=== PATIENT | male | born 1995 | race Hispanic/Latino ===

== ENCOUNTER 2020-05-06 16:31 | Emergency (ER) | payer SELFPAY ==
[2020-05-06] MEDS ORDERED: AZITHROMYCIN 250 MG TAB ONE (18:04)
--- NOTE | 2020-05-06 18:37 | EDPHYS ---
Physician Documentation [facility] Name: Israel Mathias Jr Age: 25 yrs Sex: Male : 1995 Arrival Date: 05/06/2020 Time: 16:33 Bed 25 Private MD: ED Physician Jayce Potter HPI: 05/06 18:09 This 25 yrs old Male presents to ER via Ambulatory with complaints of Sore snw Throat, Congestion. 18:09 The patient presents with sore throat. The patient describes throat pain as raw, snw scratchy. Onset: The symptoms/episode began/occurred suddenly. Severity of symptoms: At their worst the symptoms were moderate, in the emergency department the symptoms are unchanged. Modifying factors: The patient has had contact with sick mother, + CoVid 19. Associated signs and symptoms: Pertinent positives: flu-like symptoms. The patient has not experienced similar symptoms in the past. It is unknown whether or not the patient has recently seen a physician. Historical: - Allergies: 16:38 No Known Allergies; sv - PSHx: 16:38 left foot surgery; sv - Immunization history:: Adult Immunizations up to date. - Social history:: Smoking status: . ROS: 18:10 Constitutional: Negative for fever, chills, and weight loss, Eyes: Negative for injury, snw pain, redness, and discharge, Neck: Negative for injury, pain, and swelling, Cardiovascular: Negative for chest pain, palpitations, and edema, Respiratory: Negative for shortness of breath, cough, wheezing, and pleuritic chest pain, Abdomen/GI: Negative for abdominal pain, nausea, vomiting, diarrhea, and constipation, Back: Negative for injury and pain, : Negative for injury, bleeding, discharge, and swelling, MS/Extremity: Negative for injury and deformity, Skin: Negative for injury, rash, and discoloration, Neuro: Negative for headache, weakness, numbness, tingling, and seizure, Psych: Negative for depression, anxiety, suicide ideation, homicidal ideation, and hallucinations. 18:10 ENT: Positive for sore throat. Exam: 18:07 Constitutional: This is a well developed, well nourished patient who is awake, alert, snw and in no acute distress. Head/Face: Normocephalic, atraumatic. Eyes: Pupils equal round and reactive to light, extra-ocular motions intact. Lids and lashes normal. Conjunctiva and sclera are non-icteric and not injected. Cornea within normal limits. Periorbital areas with no swelling, redness, or edema. 18:07 Neck: Trachea midline, no thyromegaly or masses palpated, and no cervical lymphadenopathy. Supple, full range of motion without nuchal rigidity, or vertebral point tenderness. No Meningismus. Chest/axilla: Normal chest wall appearance and motion. Nontender with no deformity. No lesions are appreciated. 18:07 Abdomen/GI: Soft, non-tender, with normal bowel sounds. No distension or tympany. No guarding or rebound. No evidence of tenderness throughout. Back: No spinal tenderness. No costovertebral tenderness. Full range of motion. Skin: Warm, dry with normal turgor. Normal color with no rashes, no lesions, and no evidence of cellulitis. MS/ Extremity: Pulses equal, no cyanosis. Neurovascular intact. Full, normal range of motion. Neuro: Awake and alert, GCS 15, oriented to person, place, time, and situation. Cranial nerves II-XII grossly intact. Motor strength 5/5 in all extremities. Sensory grossly intact. Cerebellar exam normal. Normal gait. Psych: Awake, alert, with orientation to person, place and time. Behavior, mood, and affect are within normal limits. 18:07 ENT: TM's: are normal, Nose: is normal, Mouth: is normal, Posterior pharynx: erythema, that is mild, Dental exam: normal, Voice: is normal. 18:07 Cardiovascular: Rate: tachycardic, Rhythm: regular, Pulses: no pulse deficits are appreciated, Heart sounds: normal. 18:07 Respiratory: the patient does not display signs of respiratory distress, Respirations: no acute changes, Breath sounds: bronchial sounds. Vital Signs: 16:38 BP 120 / 80; Pulse 118; Resp 20; Temp 98.9; Pulse Ox 100% ; Height 5 ft. 7 in. (170.18 sv cm); MDM: 16:48 Patient medically screened. snw 18:35 Data reviewed: vital signs, nurses notes. Data interpreted: Pulse oximetry: on room air snw is 100 %. Interpretation: normal. Counseling: I had a detailed discussion with the patient and/or guardian regarding: the historical points, exam findings, and any diagnostic results supporting the discharge/admit diagnosis, lab results, radiology results, the need for outpatient follow up, to return to the emergency department if symptoms worsen or persist or if there are any questions or concerns that arise at home. Special discussion: I have referred the patient to see his PCP for further evaluation of high blood pressure. Based on the history and exam findings, there is no indication for further emergent testing or inpatient evaluation. I discussed with the patient/guardian the need to see the primary care provider for further evaluation of the symptoms. 05/06 16:44 Order name: Flu; Complete Time: 17:57 snw 05/06 16:44 Order name: Strep; Complete Time: 17:57 snw 05/06 16:44 Order name: COVID-19; Complete Time: 19:06 snw 05/06 17:39 Order name: Chest Single View XRAY; Complete Time: 18:42 snw 05/06 17:51 Order name: Throat Culture EDMS Administered Medications: 18:00 Drug: Zithromax 500 mg Route: PO; ls4 18:30 Follow up: Response: No adverse reaction ls4 18:08 Drug: Zinc Sulfate 220 mg Route: PO; ls4 18:30 Follow up: Response: No adverse reaction ls4 Disposition: 05/06/20 18:37 Discharged to Home. Impression: SARS-associated coronavirus as the cause of diseases classified elsewhere. - Condition is Stable. - Discharge Instructions: Severe Acute Respiratory Syndrome (SARS). - Prescriptions for Zinc (with A and C) Lozenges - take 1 lozenge by ORAL route once daily; 30 lozenge. Zithromax 500 mg Oral Tablet - take 1 tablet by ORAL route once daily for 5 days; 5 tablet. - Work release form, Medication Reconciliation Form, Thank You Letter, Antibiotic Education, Prescription Opioid Use form. - Follow up: Emergency Department; When: As needed; Reason: Worsening of condition. Follow up: Private Physician; When: 2 - 3 days; Reason: Recheck today's complaints, Continuance of care, Re-evaluation by your physician. Addendum: 05/10/2020 07:11 Co-signature as Attending Physician, Jayce Potter MD. r n Signatures: Dispatcher [facility] Lynn Hodgson RN RN sv Waters, Shelly, FNP-C MACHINE TAILER-Csnw Jayce Potter MD MD rn Westbrook, MyrtleLucia mw2 Marianela Tomas RN RN ls4 Corrections: (The following items were deleted from the chart) 05/06 19:26 18:37 05/06/2020 18:37 Discharged to Home. Impression: SARS-associated coronavirus as mw2 the cause of diseases classified elsewhere. Condition is Stable. Forms are Medication Reconciliation Form, Thank You Letter, Antibiotic Education, Prescription Opioid Use. Follow up: Emergency Department; When: As needed; Reason: Worsening of condition. Follow up: Private Physician; When: 2 - 3 days; Reason: Recheck today's complaints, Continuance of care, Re-evaluation by your physician. snw
--- NOTE | 2020-05-06 18:37 | ER ---
Nurse's Notes [facility] Name: Israel Mathias Jr Age: 25 yrs Sex: Male : 1995 Arrival Date: 05/06/2020 Time: 16:33 Bed 25 Private MD: Diagnosis: SARS-associated coronavirus as the cause of diseases classified elsewhere Presentation: 05/06 16:37 Chief complaint: Patient states: sore throat, runny nose, headache, fatigue x 1 day. Pt sv was around his mother who was COVID +. Coronavirus screen: Client denies travel out of the [place] in the last 14 days. fatigue, headache, runny nose, sore throat, Client presents with at least one sign or symptom that may indicate coronavirus-19. Standard/surgical mask placed on the client. Provider contacted for isolation considerations. Ebola Screen: No symptoms or risks identified at this time. Risk Assessment: Do you want to hurt yourself or someone else? Patient reports no desire to harm self or others. Onset of symptoms was May 05, 2020. 16:37 Method Of Arrival: Ambulatory sv 16:37 Acuity: ROD 3 sv 16:38 Initial Sepsis Screen: Does the patient meet any 2 criteria? HR > 90 bpm. No. Patient's sv initial sepsis screen is negative. Does the patient have a suspected source of infection? No. Patient's initial sepsis screen is negative. Historical: - Allergies: 16:38 No Known Allergies; sv - PSHx: 16:38 left foot surgery; sv - Immunization history:: Adult Immunizations up to date. - Social history:: Smoking status: . Vital Signs: 16:38 BP 120 / 80; Pulse 118; Resp 20; Temp 98.9; Pulse Ox 100% ; Height 5 ft. 7 in. (170.18 sv cm); ED Course: 16:33 Patient arrived in ED. as 16:37 Arm band placed on. sv 16:38 Triage completed. sv 16:43 Shelley Medina FNP-C is PHCP. snw 16:43 Jayce Potter MD is Attending Physician. snw 16:51 Marianela Tomas RN is Primary Nurse. ls4 18:25 Chest Single View XRAY In Process Unspecified. EDMS Administered Medications: 18:00 Drug: Zithromax 500 mg Route: PO; ls4 18:30 Follow up: Response: No adverse reaction ls4 18:08 Drug: Zinc Sulfate 220 mg Route: PO; ls4 18:30 Follow up: Response: No adverse reaction ls4 Outcome: 18:37 Discharge ordered by MD. palafox 19:26 Patient left the ED. mw2 Addendum: 05/10/2020 10:48 Addendum: COVID-19 Result: Negative result given to RN to notify pt. Attempted to i w contact pt regarding negative COVID-19 swab results. Left voice mail. Signatures: Dispatcher [employer] EDLynn London RN RN sv Waters, Shelly, ODD JOB LABORER-C ODD JOB LABORER-CsnSwapna Lam Irene RN Nessa Davis mw2 Marianela Tomas RN RN ls4 Corrections: (The following items were deleted from the chart) 05/06 16:44 16:37 Acuity: ROD 4 sv
--- NOTE | 2020-05-06 18:38 | RAD REPORT ---
EXAM DESCRIPTION: RAD - Chest Single View - 05/06/2020 6:25 pm CLINICAL HISTORY: COUGH Chest pain. COMPARISON: Chest Single View dated 08/03/2016; ABDOMEN 1 VIEW KUB dated 09/08/2008 FINDINGS: Portable technique limits examination quality. The lungs are grossly clear. The heart is normal in size. No displaced fractures. IMPRESSION: No acute intrathoracic process suspected.
[2020-05-06] MEDS ORDERED: ZINC SULFATE 220 MG CAP PO NR (19:00)
== END 2020-05-06 19:26 | disposition home or self-care (01) ==
LOC: ER 16:31
DX: R07.0 Pain in throat (principal); Z20.828 Contact with and (suspected) exposure to other viral communicable diseases
CPT/HCPCS: 71045; 87070; 87081; 87804; 99283; U0002

== ENCOUNTER 2022-04-19 09:51 | Emergency (ER) | payer SELFPAY ==
--- OUTSIDE RECORDS SUMMARY | 2022-04-19 09:54 | XMS REPORT | Continuity of Care Document ---
:1995 Author Organization [facility] t Address [address] [place] [address] [address] [place] [address] Care Team Providers Name Role Phone Unavailable Unavailable Unavailable Problems This patient has no known problems. Allergies, Adverse Reactions, Alerts Allergy Allergy Status Severity Reaction(s) Onset Inactive Treating Comm ents Source Name Type Date Date Clinician NO KNOWN Drug Active [facility] ALLERGIE Class [facility] Medications This patient has no known medications. Procedures This patient has no known procedures. Encounters Start End Encounter Admission Attending Care Care Encounter Source Date/Time Date/Time Type Type Clinicians Facility Department ID 2020-05-07 2020-05-07 Emergency X [facility] ERT [id number] [facility] 14:21:00 14:21:00 [facility] Results Test Description Test Time Test Comments Results Result Comments Source SARS-CoV-2 (COVID-19), RT-PCR/TMA 2021-09-27 09:22:51 Test Item Value Reference Range Interpretation Comme nts SARS-CoV-2 INTERPRETATION POSITIVE SEE NOTE A S ARS-CoV-2 RNA DETECTEDPositive (test code = 81583) results are indicative of the presence of IGNACIO S-CoV-2 RNA;clinical co rrelation with patient history and other diagnosticinfor mation is necessary to de termine patient infection statu s.Positive results do not rule out bacterial infection or co -infectionwith other viruses. Positive and negative predic tive values oftesting are h ighly dependent on prevalence. SOURCE (test code = 06905) NASOPHARYNGEAL Note: Methodology is [employer] Real-Time RT-PC R. The expected result or refer ence range is NEGATIVE (Not D etected). For more information reg arding COVID-19 testing to incl ude clinicalinforma tion, methodology detail, intende d use, FDA authorization a ndrecommended fact sheets for cindy ents or healthcare providers, see [facility] Announcement: S ARS-CoV-2 (COVID-19) by N ENEDINA at URL below (note,fact shee ts are provided by method given in report:https:// www.BigEvidence/cl inicians/client -communications/ Alternatively, see downloadable PDF fact sheet at:https://www. BigEvidence/COVID- 19-RT-PCR UNLES S OTHERWISE INDICATED, ALL TESTING PERFORMED ATCLINICAL [facility], [facility]. [address] [place] [address] 4 PRINTER APPRENTICE: MERVAT RUIZ M.D. CLIA NUMBER [id number] CAP ACCREDITATION N O. [id number]
[2022-04-19] MEDS ORDERED: ACETAMINOPHEN 500 MG TAB ONE (10:46)
[2022-04-19] MEDS ORDERED: ONDANSETRON 4 MG/2 ML VIAL ONE (10:46)
[2022-04-19] MEDS ORDERED: NA CHLORIDE 0.9% 1,000 ML ONE (10:46)
[2022-04-19 10:48] LABS: Absolute Lymphocytes (CBC) 0.6 K/uL (0.7-4.9); Hematocrit 46.7 % (39.6-49.0); MCV 85.4 fL (80-100); MPV 8.1 fL (7.6-11.3); RBC Red Blood Cell Count 5.46 M/uL (4.33-5.43)
[2022-04-19 11:11] LABS: Albumin 3.9 g/dL (3.4-5.0); Bilirubin Total 0.4 mg/dL (0.2-1.0); Potassium 3.8 mmol/L (3.5-5.1); Protein, Total 8.4 g/dL (6.4-8.2)
[2022-04-19] MEDS ORDERED: dexAMETHasone 10 MG/ML VIAL ONE (12:29)
[2022-04-19] MEDS ORDERED: CEFTRIAXONE 1000 MG/VIAL ONE (12:29)
[2022-04-19] MEDS ORDERED: NA CHLORIDE 0.9% 50 ML ONE (12:29)
--- NOTE | 2022-04-19 13:41 | ER ---
Nurse's Notes [facility] Name: Israel Mathias Jr Age: 26 yrs Sex: Male : 1995 Arrival Date: 04/19/2022 Time: 09:53 Bed 16 Private MD: Diagnosis: Infectious mononucleosis, unspecified with other complication;Acute tonsillitis due to other specified organisms Presentation: 04/19 10:12 Chief complaint: Patient states: coughing, chills, vomiting an sore throat, started iw yesterday. Coronavirus screen: Client presents with at least one sign or symptom that may indicate coronavirus-19. Ebola Screen: Patient negative for fever greater than or equal to 101.5 degrees Fahrenheit, and additional compatible Ebola Virus Disease symptoms Patient denies exposure to infectious person. Patient denies travel to an Ebola-affected area in the 21 days before illness onset. No symptoms or risks identified at this time. Initial Sepsis Screen: Does the patient meet any 2 criteria? No. Patient's initial sepsis screen is negative. Does the patient have a suspected source of infection? No. Patient's initial sepsis screen is negative. Risk Assessment: Do you want to hurt yourself or someone else? Patient reports no desire to harm self or others. Onset of symptoms was April 18, 2022. 10:12 Method Of Arrival: Ambulatory iw 10:12 Acuity: ROD 3 iw Triage Assessment: 13:15 Headache History: Denies prior headaches. General: Appears. General: Behavior is calm, jg9 cooperative. Pain: Complains of pain in uvula, left aspect of posterior pharynx and right aspect of posterior pharynx Pain currently is 2 out of 10 on a pain scale. Pain began 2-3 days ago. Also complains of fever. Historical: - Allergies: 10:14 No Known Allergies; iw - Home Meds: 10:14 None [Active]; iw - PMHx: 10:14 None; iw - PSHx: 10:14 head injury; iw - Immunization history:: Client reports receiving the 2nd dose of the Covid vaccine. - Social history:: Smoking status: Patient denies any tobacco usage or history of. Screenin:15 Abuse screen: Denies threats or abuse. Denies injuries from another. Nutritional jg9 screening: No deficits noted. Tuberculosis screening: No symptoms or risk factors identified. Fall Risk None identified. Assessment: 11:00 Reassessment: No changes from previously documented assessment. Patient and/or family jg9 updated on plan of care and expected duration. Pain level reassessed. Patient is alert, oriented x 3, equal unlabored respirations, skin warm/dry/pink. 12:00 Reassessment: Patient is alert, oriented x 3, equal unlabored respirations, skin jg9 warm/dry/pink. Patient states feeling better. Patient states symptoms have improved. 12:00 Reassessment: No changes from previously documented assessment. Patient and/or family jg9 updated on plan of care and expected duration. Pain level reassessed. Patient is alert, oriented x 3, equal unlabored respirations, skin warm/dry/pink. Pain: Denies pain. Neuro: No deficits noted. 13:00 Reassessment: No changes from previously documented assessment. Patient and/or family jg9 updated on plan of care and expected duration. Pain level reassessed. Patient is alert, oriented x 3, equal unlabored respirations, skin warm/dry/pink. Vital Signs: 10:12 BP 111 / 72; Pulse 123; Resp 16; Temp 97.9; Pulse Ox 98% ; Weight 131.54 kg; Height 5 iw ft. 6 in. (167.64 cm); 13:00 BP 117 / 74; Pulse 108; Resp 17 S; Pulse Ox 95% on R/A; jg9 13:30 BP 112 / 69; Pulse 99; Resp 12 S; Pulse Ox 96% on R/A; jg9 10:12 Body Mass Index 46.81 (131.54 kg, 167.64 cm) iw ED Course: 09:53 Patient arrived in ED. rg4 09:54 Sigifredo Quintero PA is PHCP. cp 09:54 Marco Dewitt MD is Attending Physician. cp 10:14 Triage completed. iw 10:14 Arm band placed on. iw 10:36 Makayla Maher, HA is Primary Nurse. jg9 10:40 Inserted saline lock: 22 gauge in left antecubital area, using aseptic technique. Blood jg9 collected. 13:17 Patient has correct armband on for positive identification. Bed in low position. Call jg9 light in reach. Side rails up X 1. 13:50 No provider procedures requiring assistance completed. jg9 13:51 IV discontinued. jg9 Administered Medications: 10:50 Drug: Tylenol 1000 mg Route: PO; jg9 12:32 Follow up: Response: No adverse reaction jg9 10:50 Drug: NS 0.9% 1000 ml Route: IV; Rate: 1 bolus; Site: left antecubital; jg9 12:32 Follow up: IV Status: Completed infusion; IV Intake: 1000ml jg9 10:55 Drug: Zofran (Ondansetron) 4 mg Route: IVP; Site: left antecubital; jg9 12:33 Follow up: Response: No adverse reaction; Nausea is decreased jg9 12:30 Drug: Rocephin (cefTRIAXone) 1 grams Route: IV; Rate: calculated rate; Site: left [facility] antecubital; 13:09 Follow up: Response: No adverse reaction jg9 13:51 Follow up: IV Status: Completed infusion; IV Intake: 50ml jg9 12:31 Drug: Decadron - Dexamethasone 10 mg Route: IVP; Site: left antecubital; jg9 13:09 Follow up: Response: No adverse reaction jg9 Medication: 13:51 VIS not applicable for this client. jg9 Intake: 12:32 IV: 1000ml; Total: 1000ml. jg9 13:51 IV: 50ml; Total: 1050ml. jg9 Outcome: 13:40 Discharge ordered by . dominique 13:50 Discharged to home ambulatory. jg9 13:50 Condition: stable 13:50 Discharge instructions given to patient, Instructed on discharge instructions, follow up and referral plans. Demonstrated understanding of instructions, follow-up care, Prescriptions given X 2. 13:52 Patient left the ED. jg9 Signatures: Chantal Kaplan, RN RN Sigifredo Gallardo PA PA cp Garcia, Rubi rg4 Makayla Maher RN RN jg9
--- NOTE | 2022-04-19 13:41 | EDPHYS ---
Physician Documentation [facility] Name: Israel Mathias Jr Age: 26 yrs Sex: Male : 1995 Arrival Date: 04/19/2022 Time: 09:53 Bed 16 Private MD: ED Physician Marco Dewitt HPI: 04/19 10:35 This 26 yrs old Male presents to ER via Ambulatory with complaints of cp Headache, Sore Throat. 10:35 The patient complains of pain to the top of head and forehead. The patient describes cp the headache as aching. Onset: The symptoms/episode began/occurred yesterday. Associated signs and symptoms: Pertinent positives: vomiting, sore throat, Pertinent negatives: altered mental status, fever, neck stiffness, sinus congestion, sinus tenderness, weakness. Severity of symptoms: in the emergency department the pain is unchanged, despite home interventions. Historical: - Allergies: 10:14 No Known Allergies; iw - Home Meds: 10:14 None [Active]; iw - PMHx: 10:14 None; iw - PSHx: 10:14 head injury; iw - Immunization history:: Client reports receiving the 2nd dose of the Covid vaccine. - Social history:: Smoking status: Patient denies any tobacco usage or history of. ROS: 10:40 Constitutional: Negative for body aches, chills, fever, poor PO intake. cp 10:40 Eyes: Negative for injury, pain, redness, and discharge. cp 10:40 ENT: Positive for sore throat, Negative for drainage from ear(s), ear pain, difficulty swallowing, difficulty handling secretions. 10:40 Cardiovascular: Negative for chest pain. 10:40 Respiratory: Negative for cough, shortness of breath, wheezing. 10:40 Abdomen/GI: Positive for vomiting, Negative for abdominal pain, diarrhea, constipation. 10:40 Skin: Negative for cellulitis, rash. 10:40 Neuro: Positive for headache, Negative for altered mental status, weakness. 10:40 All other systems are negative. Exam: 10:45 Constitutional: The patient appears in no acute distress, alert, awake, non-toxic, well cp developed, well nourished. 10:45 Head/Face: Normocephalic, atraumatic. cp 10:45 Eyes: Periorbital structures: appear normal, Pupils: equal, round, and reactive to light and accomodation, Extraocular movements: intact throughout, Conjunctiva: normal, no exudate, no injection, Sclera: no appreciated abnormality, Lids and lashes: appear normal, bilaterally. 10:45 ENT: External ear(s): are unremarkable, Ear canal(s): are normal, clear, TM's: dullness, bilaterally, Nose: is normal, Mouth: Lips: moist, Oral mucosa: moist, Posterior pharynx: Tonsils: bilaterally enlarged, with erythema, no exudate, Uvula: midline, erythema, that is marked, exudate, is not appreciated. 10:45 Neck: ROM/movement: is normal, is supple, without pain, no range of motions limitations, no meningismus, no nuchal rigidity. 10:45 Chest/axilla: Inspection: normal. 10:45 Cardiovascular: Rate: tachycardic, Rhythm: regular. 10:45 Respiratory: the patient does not display signs of respiratory distress, Respirations: normal, no use of accessory muscles, no retractions, labored breathing, is not present, Breath sounds: are clear throughout, no decreased breath sounds, no stridor, no wheezing. 10:45 Abdomen/GI: Inspection: abdomen appears normal, Palpation: abdomen is soft and non-tender, in all quadrants. 10:45 Back: pain, is absent, ROM is normal. 10:45 Skin: no rash present. 10:45 Neuro: Orientation: to person, place \\T\\ time. Mentation: is normal, Motor: moves all fours, strength is normal, Sensation: is normal. Vital Signs: 10:12 BP 111 / 72; Pulse 123; Resp 16; Temp 97.9; Pulse Ox 98% ; Weight 131.54 kg; Height 5 iw ft. 6 in. (167.64 cm); 13:00 BP 117 / 74; Pulse 108; Resp 17 S; Pulse Ox 95% on R/A; jg9 13:30 BP 112 / 69; Pulse 99; Resp 12 S; Pulse Ox 96% on R/A; jg9 10:12 Body Mass Index 46.81 (131.54 kg, 167.64 cm) iw MDM: 10:35 Patient medically screened. cp 13:40 Data reviewed: vital signs, nurses notes, lab test result(s). cp 13:40 Differential diagnosis: meningitis, migraine, sinusitis, tension headache. Counseling: cp I had a detailed discussion with the patient and/or guardian regarding: the historical points, exam findings, and any diagnostic results supporting the discharge/admit diagnosis, lab results, to return to the emergency department if symptoms worsen or persist or if there are any questions or concerns that arise at home. Response to treatment: the patient's symptoms have markedly improved after treatment, and as a result, I will discharge patient. 04/19 10:18 Order name: SARS-COV-2 RT PCR (Document "Date of Onset" if Symptomatic); Complete Time: iw 12:04/19 12:27 Interpretation: Reviewed. 04/19 10:18 Order name: Flu; Complete Time: 11:56 iw 04/19 10:18 Order name: Strep; Complete Time: 11:56 iw 04/19 10:27 Order name: CBC with Diff; Complete Time: 11:22 cp 04/19 11:22 Interpretation: Normal except: WBC 14.3; RBC 5.46; LUIS% 88.5; LYM% 4.0; NEUT A 12.7; cp LYMA 0.6. 04/19 10:27 Order name: CMP; Complete Time: 11:22 cp 04/19 11:22 Interpretation: Normal except: GLUC 121; AST 13; TP 8.4; GLOB 4.5; A/G 0.9. cp 04/19 10:27 Order name: Lipase; Complete Time: 11:22 cp 04/19 10:27 Order name: IV Saline Lock; Complete Time: 10:33 cp 04/19 10:27 Order name: [place] Screen Profile; Complete Time: 11:56 cp 04/19 11:56 Interpretation: Reviewed. 04/19 11:54 Order name: Throat Culture EDMS 04/19 10:27 Order name: Labs collected and sent; Complete Time: 10:33 cp 04/19 12:59 Order name: PO challenge; Complete Time: 13:13 cp Administered Medications: 10:50 Drug: Tylenol 1000 mg Route: PO; jg9 12:32 Follow up: Response: No adverse reaction j9 10:50 Drug: NS 0.9% 1000 ml Route: IV; Rate: 1 bolus; Site: left antecubital; jg9 12:32 Follow up: IV Status: Completed infusion; IV Intake: 1000ml jg9 10:55 Drug: Zofran (Ondansetron) 4 mg Route: IVP; Site: left antecubital; jg9 12:33 Follow up: Response: No adverse reaction; Nausea is decreased jg9 12:30 Drug: Rocephin (cefTRIAXone) 1 grams Route: IV; Rate: calculated rate; Site: left j9 antecubital; 13:09 Follow up: Response: No adverse reaction jg9 13:51 Follow up: IV Status: Completed infusion; IV Intake: 50ml jg9 12:31 Drug: Decadron - Dexamethasone 10 mg Route: IVP; Site: left antecubital; jg9 13:09 Follow up: Response: No adverse reaction jg9 Disposition Summary: 04/19/22 13:40 Discharge Ordered Location: Home cp Problem: new cp Symptoms: have improved cp Condition: Stable cp Diagnosis - Infectious mononucleosis, unspecified with other complication cp - Acute tonsillitis due to other specified organisms cp Followup: cp - With: Private Physician - When: 1 - 2 days - Reason: Worsening of condition Discharge Instructions: - Discharge Summary Sheet cp - Infectious Mononucleosis cp - Tonsillitis cp - Form - Excuse from Work, School, or Physical Activity cp Forms: - Medication Reconciliation Form cp - Thank You Letter cp - Antibiotic Education cp - Prescription Opioid Use cp Prescriptions: - clarithromycin 500 mg Oral tablet - take 1 tablet by ORAL route 2 times per day for 10 days; 20 tablet; Refills: 0, cp Product Selection Permitted - Ibuprofen 800 mg Oral Tablet - take 1 tablet by ORAL route every 8 hours As needed take with food; 30 tablet; cp Refills: 0, Product Selection Permitted Signatures: Dispatcher [employer] Chantal Alarcon RN RN iw Page, Corey, PA PA cp Gilmore, Jennifer, RN RN jg9
[2022-04-19 14:46] VITALS: TEMP 97.9
[2022-04-19 14:59] VITALS: BP 112/69; O2SAT 96
== END 2022-04-19 13:52 | disposition home or self-care (01) ==
LOC: ER 09:51
DX: B27.99 Infectious mononucleosis, unspecified with other complication (principal); J03.80 Acute tonsillitis due to other specified organisms; Z20.822 Contact with and (suspected) exposure to COVID-19
CPT/HCPCS: 36415; 80053; 83690; 85025; 86308; 87070; 87081; 87804; 96361; 96365; 96375; 99284; J1100; J2405; J7030; U0003

== ENCOUNTER 2022-07-28 17:39 | Emergency (ER) | payer SELFPAY ==
--- OUTSIDE RECORDS SUMMARY | 2022-07-28 17:41 | XMS REPORT | Continuity of Care Document ---
:1995 Author Organization [facility] t Address [address] [place] [address] [address]. [address] [place] [address] Care Team Providers Name Role Phone Unavailable Unavailable Unavailable Problems This patient has no known problems. Allergies, Adverse Reactions, Alerts Allergy Allergy Status Severity Reaction(s) Onset Inactive Treating Comm ents Source Name Type Date Date Clinician NO KNOWN Drug Active [facility] ALLERGIE Class [facility] Medications This patient has no known medications. Procedures This patient has no known procedures. Encounters Start End Encounter Admission Attending Care Care Encounter Source Date/Time Date/Time Type Type Clinicians Facility Department ID 2020-05-07 2020-05-07 Emergency X [facility] ERT [id number] [facility] 14:21:00 14:21:00 [facility] Results Test Description Test Time Test Comments Results Result Comments Source SARS-CoV-2 (COVID-19), RT-PCR/TMA 2021-09-27 09:22:51 Test Item Value Reference Range Interpretation Comme nts SARS-CoV-2 INTERPRETATION POSITIVE SEE NOTE A S ARS-CoV-2 RNA DETECTEDPositive (test code = 77230) results are indicative of the presence of IGNACIO S-CoV-2 RNA;clinical co rrelation with patient history and other diagnosticinfor mation is necessary to de termine patient infection statu s.Positive results do not rule out bacterial infection or co -infectionwith other viruses. Positive and negative predic tive values oftesting are h ighly dependent on prevalence. SOURCE (test code = 67651) NASOPHARYNGEAL Note: Methodology is [employer] Real-Time RT-PC R. The expected result or refer ence range is NEGATIVE (Not D etected). For more information reg arding COVID-19 testing to incl ude clinicalinforma tion, methodology detail, intende d use, FDA authorization a ndrecommended fact sheets for cindy ents or healthcare providers, see [facility] Announcement: S ARS-CoV-2 (COVID-19) by N ENEDINA at URL below (note,fact shee ts are provided by method given in report:https:// www.[employer]/cl inicians/client -communications/ Alternatively, see downloadable PDF fact sheet at:https://www. [employer]/COVID- 19-RT-PCR UNLES S OTHERWISE INDICATED, ALL TESTING PERFORMED AT[facility], [facility]. [address] [place] [address] 4 OFFICE RENTAL CLERK: MERVAT RUIZ M.D. CLIA NUMBER [id number] CAP ACCREDITATION N O. [id number]
[2022-07-28 19:27] LABS: SARS-COV-2 RT PCR NEGATIVE (NEGATIVE)
--- NOTE | 2022-07-28 20:52 | EDPHYS ---
Physician Documentation [facility] Name: Israel Mathias Jr Age: 27 yrs Sex: Male : 1995 Arrival Date: 07/28/2022 Time: 17:41 Bed 9 Private MD: ED Physician Sigifredo Ward HPI: 07/28 20:49 This 27 yrs old Male presents to ER via Ambulatory with complaints of chills jl9 and body aches x2 days. . 20:49 Onset: The symptoms/episode began/occurred 2 day(s) ago. The symptoms do not radiate. jl9 Associated signs and symptoms: Pertinent positives: headache. Modifying factors: The symptoms are alleviated by nothing, the symptoms are aggravated by. Historical: - Allergies: 18:30 No Known Allergies; vg1 - Home Meds: 18:30 None [Active]; vg1 - PMHx: 18:30 None; vg1 - PSHx: 18:30 head injury; vg1 - Immunization history:: Client reports having NOT received the Covid vaccine. - Social history:: Smoking status: Patient denies any tobacco usage or history of. ROS: 20:50 Constitutional: Negative for fever, chills, and weight loss, Eyes: Negative for injury, jl9 pain, redness, and discharge. 20:50 ENT: Negative for injury, pain, and discharge, Neck: Negative for injury, pain, and swelling, Cardiovascular: Negative for chest pain, palpitations, and edema, Respiratory: Negative for shortness of breath, cough, wheezing, and pleuritic chest pain, Abdomen/GI: Negative for abdominal pain, nausea, vomiting, diarrhea, and constipation, Back: Negative for injury and pain, : Negative for injury, bleeding, discharge, and swelling, MS/Extremity: Negative for injury and deformity, Skin: Negative for injury, rash, and discoloration, Neuro: Negative for headache, weakness, numbness, tingling, and seizure, Psych: Negative for depression, anxiety, suicide ideation, homicidal ideation, and hallucinations, Allergy/Immunology: Negative for hives, rash, and allergies, Endocrine: Negative for neck swelling, polydipsia, polyuria, polyphagia, and marked weight changes, Hematologic/Lymphatic: Negative for swollen nodes, abnormal bleeding, and unusual bruising. 20:50 Constitutional: Positive for body aches, chills. Exam: 20:50 Constitutional: This is a well developed, well nourished patient who is awake, alert, jl9 and in no acute distress. Head/Face: Normocephalic, atraumatic. Eyes: Pupils equal round and reactive to light, extra-ocular motions intact. Lids and lashes normal. Conjunctiva and sclera are non-icteric and not injected. Cornea within normal limits. Periorbital areas with no swelling, redness, or edema. ENT: Mucous membranes moist. Neck: Trachea midline, no thyromegaly or masses palpated, and no cervical lymphadenopathy. Supple, full range of motion without nuchal rigidity, or vertebral point tenderness. No Meningismus. Chest/axilla: Normal chest wall appearance and motion. Nontender with no deformity. No lesions are appreciated. Cardiovascular: Regular rate and rhythm with a normal S1 and S2. No gallops, murmurs, or rubs. Normal PMI, no JVD. No pulse deficits. Respiratory: Lungs have equal breath sounds bilaterally, clear to auscultation and percussion. No rales, rhonchi or wheezes noted. No increased work of breathing, no retractions or nasal flaring. Abdomen/GI: Soft, non-tender, with normal bowel sounds. No distension or tympany. No guarding or rebound. No evidence of tenderness throughout. Back: No spinal tenderness. No costovertebral tenderness. Full range of motion. Skin: Warm, dry with normal turgor. Normal color with no rashes, no lesions, and no evidence of cellulitis. MS/ Extremity: Pulses equal, no cyanosis. Neurovascular intact. Full, normal range of motion. Neuro: Awake and alert, GCS 15, oriented to person, place, time, and situation. Cranial nerves II-XII grossly intact. Motor strength 5/5 in all extremities. Sensory grossly intact. Cerebellar exam normal. Normal gait. Psych: Awake, alert, with orientation to person, place and time. Behavior, mood, and affect are within normal limits. Vital Signs: 18:27 BP 111 / 72; Pulse 117; Resp 17; Temp 100; Pulse Ox 99% ; Weight 104.33 kg; Height 5 vg1 ft. 6 in. (167.64 cm); Pain 8/10; 20:57 BP 128 / 77; Pulse 101; Resp 18; Pulse Ox 99% on R/A; ld1 18:27 Body Mass Index 37.12 (104.33 kg, 167.64 cm) 1 MDM: 18:56 Patient medically screened. jl9 20:51 Data reviewed: vital signs, nurses notes. Counseling: I had a detailed discussion with jlKaty the patient and/or guardian regarding: the historical points, exam findings, and any diagnostic results supporting the discharge/admit diagnosis, lab results, the need for outpatient follow up, to return to the emergency department if symptoms worsen or persist or if there are any questions or concerns that arise at home. 07/28 18:31 Order name: COVID-19/FLU A+B; Complete Time: 20:49 [facility] 07/28 18:31 Order name: Strep; Complete Time: 18:56 [facility] 07/28 18:53 Order name: Throat Culture EDMS Administered Medications: No medications were administered Disposition Summary: 07/28/22 20:51 Discharge Ordered Location: Home jl9 Condition: Stable jl9 Diagnosis - Influenza due to identified novel influenza A virus jl9 Followup: jl9 - With: Private Physician - When: 1 - 2 days - Reason: Recheck today's complaints, Continuance of care, Re-evaluation by your physician Discharge Instructions: - Form - Return To Work wm - Discharge Summary Sheet jl9 - Influenza, Adult, [id number] jl9 Forms: - Medication Reconciliation Form jl9 - Work release form wm - Thank You Letter jl9 - Antibiotic Education jl9 - Prescription Opioid Use jl9 Prescriptions: - Tamiflu 75 mg Oral Capsule - take 1 tablet by ORAL route every 12 hours for 5 days; 10 tablet; Refills: 0, jl9 Product Selection Permitted Addendum: 07/30/2022 13:40 Co-signature as Attending Physician, Sigifredo Ward MD I agree with the assessment and c corbett plan of care. Signatures: Dispatcher [employer] Sigifredo Becerril MD MD cha Garcia, Victoria, RN RN vg1 Moris Menjivar jl9
--- NOTE | 2022-07-28 20:52 | ER ---
Nurse's Notes [facility] Name: Israel Mathias Jr Age: 27 yrs Sex: Male : 1995 Arrival Date: 07/28/2022 Time: 17:41 Bed 9 Private MD: Diagnosis: Influenza due to identified novel influenza A virus Presentation: 07/28 18:27 Chief complaint: Patient states: ABD pain, NVD, cough/congestion, chills and body aches vg1 x 2 days. Coronavirus screen: Vaccine status: Patient reports being unvaccinated. Client denies travel out of the [place] in the last 14 days. Ebola Screen: Patient negative for fever greater than or equal to 101.5 degrees Fahrenheit, and additional compatible Ebola Virus Disease symptoms. Initial Sepsis Screen: Does the patient meet any 2 criteria? HR > 90 bpm. Does the patient have a suspected source of infection? No. Patient's initial sepsis screen is negative. Risk Assessment: Do you want to hurt yourself or someone else? Patient reports no desire to harm self or others. Onset of symptoms was July 26, 2022. 18:27 Method Of Arrival: Ambulatory vg1 18:27 Acuity: ROD 3 vg1 Triage Assessment: 18:30 General: Appears uncomfortable, Behavior is cooperative. Pain: Complains of pain in vg1 epigastric area, throat Pain currently is 8 out of 10 on a pain scale. Neuro: Level of Consciousness is awake, alert, obeys commands, Oriented to person, place, time, situation. Respiratory: Reports cough that is Airway is patent Respiratory effort is even, unlabored. GI: Reports diarrhea, nausea, vomiting. Historical: - Allergies: 18:30 No Known Allergies; vg1 - Home Meds: 18:30 None [Active]; vg1 - PMHx: 18:30 None; vg1 - PSHx: 18:30 head injury; vg1 - Immunization history:: Client reports having NOT received the Covid vaccine. - Social history:: Smoking status: Patient denies any tobacco usage or history of. Screenin:57 Abuse screen: Denies threats or abuse. Denies injuries from another. Nutritional ld1 screening: No deficits noted. Tuberculosis screening: No symptoms or risk factors identified. Fall Risk None identified. Assessment: 20:57 Reassessment: See triage assessment. ld1 Vital Signs: 18:27 BP 111 / 72; Pulse 117; Resp 17; Temp 100; Pulse Ox 99% ; Weight 104.33 kg; Height 5 vg1 ft. 6 in. (167.64 cm); Pain 8/10; 20:57 BP 128 / 77; Pulse 101; Resp 18; Pulse Ox 99% on R/A; ld1 18:27 Body Mass Index 37.12 (104.33 kg, 167.64 cm) vg1 ED Course: 17:41 Patient arrived in ED. mr 18:30 Triage completed. vg1 18:30 Arm band placed on. vg1 18:56 Moris Menjivar is PHCP. jl9 18:56 Sigifredo Ward MD is Attending Physician. jl9 20:57 Kenna Rodriguez, RN is Primary Nurse. ld1 20:57 Patient has correct armband on for positive identification. Placed in gown. Bed in low ld1 position. Call light in reach. Side rails up X2. Pulse ox on. NIBP on. Door closed. Noise minimized. 20:57 No provider procedures requiring assistance completed. Patient did not have IV access ld1 during this emergency room visit. Administered Medications: No medications were administered Medication: 20:57 VIS not applicable for this client. ld1 Outcome: 20:51 Discharge ordered by . jl9 20:57 Discharged to home ambulatory. ld1 20:57 Condition: stable 20:57 Discharge instructions given to patient, Instructed on discharge instructions, follow up and referral plans. medication usage, Demonstrated understanding of instructions, follow-up care, medications, Prescriptions given X 1. 20:58 Patient left the ED. ld1 Signatures: Renetta Silva Judith Johnson, RN RN vg1 Kenna Rodriguez, RN RN ld1 Moris Menjivar jl9
[2022-07-28 22:03] VITALS: TEMP 100; O2SAT 99
[2022-07-28 22:09] VITALS: BP 128/77
== END 2022-07-28 20:58 | disposition home or self-care (01) ==
LOC: ER 17:39
DX: J10.1 Influenza due to other identified influenza virus with other respiratory manifestations (principal); Z20.822 Contact with and (suspected) exposure to COVID-19
CPT/HCPCS: 0240U; 87070; 87081; 99283

== ENCOUNTER 2023-03-28 03:31 | Emergency (ER) | payer SELFPAY ==
--- NOTE | 2023-03-28 03:39 | EDPHYS ---
Physician Documentation [facility] Name: Israel Mathias Jr Age: 27 yrs Sex: Male : 1995 Arrival Date: 03/28/2023 Time: 03:31 Bed IW1 Private MD: ED Physician Marco Dewitt HPI: 03/28 03:37 This 27 yrs old Male presents to ER via Ambulatory with complaints of sp3 Toothache. 03:37 27-year-old male with no past medical history presents with right mandibular molar pain sp3 which has been off and on for 1 year and over the last 2 days is increased in intensity along with some swelling and erythema. He denies any other symptoms including fever, airway compromise, difficulty swallowing. He has no local dentist but states he will get 1. ROS otherwise negative.. Historical: - Allergies: 03:37 No Known Allergies; kd3 - PSHx: 03:37 head injury; kd3 - Immunization history:: Adult Immunizations up to date. - Social history:: Smoking status: Patient denies any tobacco usage or history of. ROS: 03:38 Constitutional: Negative for fever, chills, and weight loss, Eyes: Negative for injury, sp3 pain, redness, and discharge, Neck: Negative for injury, pain, and swelling, Cardiovascular: Negative for chest pain, palpitations, and edema, Respiratory: Negative for shortness of breath, cough, wheezing, and pleuritic chest pain, Abdomen/GI: Negative for abdominal pain, nausea, vomiting, diarrhea, and constipation, Back: Negative for injury and pain, MS/Extremity: Negative for injury and deformity, Skin: Negative for injury, rash, and discoloration, Neuro: Negative for headache, weakness, numbness, tingling, and seizure. 03:38 All other systems are negative. Exam: 03:38 Constitutional: This is a well developed, well nourished patient who is awake, alert, sp3 and in no acute distress. Head/Face: Normocephalic, atraumatic. Eyes: Pupils equal round and reactive to light, extra-ocular motions intact. Lids and lashes normal. Conjunctiva and sclera are non-icteric and not injected. Cornea within normal limits. Periorbital areas with no swelling, redness, or edema. Neck: Trachea midline, no thyromegaly or masses palpated, and no cervical lymphadenopathy. Supple, full range of motion without nuchal rigidity, or vertebral point tenderness. No Meningismus. Chest/axilla: Normal chest wall appearance and motion. Nontender with no deformity. No lesions are appreciated. Cardiovascular: Regular rate and rhythm with a normal S1 and S2. No gallops, murmurs, or rubs. Normal PMI, no JVD. No pulse deficits. Respiratory: Lungs have equal breath sounds bilaterally, clear to auscultation and percussion. No rales, rhonchi or wheezes noted. No increased work of breathing, no retractions or nasal flaring. Abdomen/GI: Soft, non-tender, with normal bowel sounds. No distension or tympany. No guarding or rebound. No evidence of tenderness throughout. Back: No spinal tenderness. No costovertebral tenderness. Full range of motion. Skin: Warm, dry with normal turgor. Normal color with no rashes, no lesions, and no evidence of cellulitis. 03:38 ENT: Right lower mandibular third from the back tooth with decay and surrounding erythema.. Vital Signs: 03:37 Pulse 86; Resp 19; Temp 97.5(TE); Pulse Ox 100% on R/A; Weight 99.79 kg; kd3 03:39 BP 126 / 82; kd3 MDM: 03:38 Data reviewed: vital signs, nurses notes. ED course: We will place patient on sp3 antibiotic and pain medication and follow-up with dentistry. Patient is not septic and there is no airway compromise.. 03:39 Patient medically screened. sp3 Administered Medications: 03:44 Drug: Ibuprofen PO 800 mg Route: PO; kd3 03:46 Follow up: Response: No adverse reaction; Pain is decreased kd3 Disposition Summary: 03/28/23 03:39 Discharge Ordered Location: Home sp3 Condition: Stable sp3 Diagnosis - Dental decay, dental abscess sp3 Followup: sp3 - With: Private Physician - When: Upon discharge from the Emergency Department - Reason: Continuance of care Discharge Instructions: - Discharge Summary Sheet sp3 - Dental Caries, Adult sp3 Forms: - Medication Reconciliation Form sp3 - Thank You Letter sp3 - Antibiotic Education sp3 - Prescription Opioid Use sp3 - Patient Portal Instructions sp3 Prescriptions: - Augmentin 875-125 mg Oral Tablet - take 1 tablet by ORAL route every 12 hours for 10 days; 20 tablet; Refills: 0, sp3 Product Selection Permitted - Diclofenac Sodium 75 mg Oral Tablet Sustained Release - take 1 tablet by ORAL route 2 times per day; 30 tablet; Refills: 0, Product sp3 Selection Permitted Signatures: Marco Dewitt MD MD sp3 Mamie Alexander, HA RN kd3
--- NOTE | 2023-03-28 03:39 | ER ---
Nurse's Notes [facility] Name: Israel Mathias Jr Age: 27 yrs Sex: Male : 1995 Arrival Date: 03/28/2023 Time: 03:31 Bed IW1 Private MD: Diagnosis: Dental decay, dental abscess Presentation: 03/28 03:36 Chief complaint: Patient states: My right lower tooth has been decaying for about a kd3 year. I bit into some food and i think it made it worse. Ebola Screen: No symptoms or risks identified at this time. Initial Sepsis Screen: Does the patient meet any 2 criteria? No. Patient's initial sepsis screen is negative. Does the patient have a suspected source of infection? No. Patient's initial sepsis screen is negative. Risk Assessment: Do you want to hurt yourself or someone else? Patient reports no desire to harm self or others. Onset of symptoms was March 28, 2023. 03:36 Method Of Arrival: Ambulatory kd3 03:36 Acuity: ROD 4 kd3 03:37 Coronavirus screen: Vaccine status: Patient reports receiving the 2nd dose of the covid kd3 vaccine. Triage Assessment: 03:38 General: Appears uncomfortable, Behavior is calm, cooperative. Pain: Complains of pain kd3 in lower right cuspid, lower right first bicuspid and lower right second bicuspid. EENT: Reports pain in lower right first bicuspid and lower right second bicuspid. Historical: - Allergies: 03:37 No Known Allergies; kd3 - PSHx: 03:37 head injury; kd3 - Immunization history:: Adult Immunizations up to date. - Social history:: Smoking status: Patient denies any tobacco usage or history of. Screenin:44 [facility] ED Fall Risk Assessment (Adult) History of falling in the last 3 months, kd3 including since admission No falls in past 3 months (0 pts) Confusion or Disorientation No (0 pts) Intoxicated or Sedated No (0 pts) Impaired Gait No (0 pts) Mobility Assist Device Used No (0 pt) Altered Elimination No (0 pt) Score/Fall Risk Level 0 - 2 = Low Risk Maintained a safe environment. Abuse screen: Denies threats or abuse. Denies injuries from another. Nutritional screening: No deficits noted. Tuberculosis screening: No symptoms or risk factors identified. Vital Signs: 03:37 Pulse 86; Resp 19; Temp 97.5(TE); Pulse Ox 100% on R/A; Weight 99.79 kg; kd3 03:39 BP 126 / 82; kd3 ED Course: 03:33 Patient arrived in ED. jj6 03:35 Marco Dewitt MD is Attending Physician. sp3 03:37 Triage completed. kd3 03:39 Arm band placed on right wrist. kd3 03:45 Patient has correct armband on for positive identification. Provided Education on: . kd3 03:45 No provider procedures requiring assistance completed. Patient did not have IV access kd3 during this emergency room visit. 03:46 Mamie Alexander, RN is Primary Nurse. kd3 Administered Medications: 03:44 Drug: Ibuprofen PO 800 mg Route: PO; kd3 03:46 Follow up: Response: No adverse reaction; Pain is decreased kd3 Medication: 03:45 VIS not applicable for this client. kd3 Outcome: 03:39 Discharge ordered by . sp3 03:45 Discharged to home ambulatory. kd3 03:45 Condition: stable 03:45 Discharge instructions given to patient, Instructed on discharge instructions, follow up and referral plans. medication usage, Demonstrated understanding of instructions, follow-up care, medications, Prescriptions given X 2. 03:46 Patient left the ED. kd3 Signatures: Marco Dewitt MD MD sp3 Makayla Fontana jj6 Mamie Alexander, RN RN kd3
[2023-03-28] MEDS ORDERED: IBUPROFEN 400 MG TAB ONE (03:51)
[2023-03-28 03:54] VITALS: TEMP 97.5; O2SAT 100
[2023-03-28 03:56] VITALS: BP 126/82
== END 2023-03-28 03:46 | disposition home or self-care (01) ==
LOC: ER 03:31
DX: K04.7 Periapical abscess without sinus (principal)
CPT/HCPCS: 99283

== ENCOUNTER 2025-06-27 18:21 | Emergency (ER) | payer BC ==
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
[2025-06-27] MEDS ORDERED: ONDANSETRON 4 MG/2 ML VIAL ONE (19:17)
[2025-06-27] MEDS ORDERED: FAMOTIDINE 20 MG/2 ML VIAL IV ONE (19:17)
[2025-06-27] MEDS ORDERED: NA CHLORIDE 0.9% 1,000 ML ONE (19:18)
[2025-06-27 19:43] LABS: Absolute Lymphocytes (CBC) 0.4 K/uL (0.7-4.9); Hematocrit 49.8 % (39.6-49.0); Hemoglobin 16.7 g/dL (13.6-17.9); MCH 28.9 pg (27.0-35.0); MCHC 33.5 g/dL (32.0-36.0); MCV 86.4 fL (80-100); MPV 8.5 fL (7.6-11.3); Nucleated RBC Absolute Count 0.0 (0-0); Nucleated Red Blood Cells % 0.0 % (0-0); RBC Red Blood Cell Count 5.77 M/uL (4.33-5.43); White Blood Count 15.10 thou/uL (4.3-10.9)
[2025-06-27 19:50] LABS: Influenza A Ag Negative; Influenza B Ag Negative; SARS-CoV-2 Antigen Rapid Res Negative (Negative)
[2025-06-27 19:51] LABS: ALT/SGPT 32.0 U/L (16-61); AST/SGOT 15.0 U/L (15-37); Albumin 3.9 g/dL (3.4-5.0); Albumin/Globulin Ratio 0.8 (1.1-1.8); Alkaline Phosphatase 100.0 U/L (45-117); Anion Gap 8.8 mEq/L (5.0-15.0); BUN Blood Urea Nitrogen 12.0 mg/dL (7-18); Globulin 4.7 g/dL (2.3-3.5); Glucose Level 135.0 mg/dL (74-106); Lipase 15.0 U/L (13-75); Potassium 3.8 mEq/L (3.5-5.1)
--- NOTE | 2025-06-27 20:07 | ER ---
Nurse's Notes [facility] Name: Israel Mathias Jr Age: 30 yrs Sex: Male : 1995 Arrival Date: 06/27/2025 Time: 18:21 Bed 7 Private MD: Diagnosis: Viral gastroenteritis Presentation: 06/27 18:38 Chief complaint: Patient states: n/v/d that started today. Coronavirus screen: At this me1 time, the client does not indicate any symptoms associated with coronavirus-19. Ebola Screen: No symptoms or risks identified at this time. Initial Sepsis Screen: Does the patient meet any 2 criteria? HR > 90 bpm. Does the patient have a suspected source of infection? No. Patient's initial sepsis screen is negative. Risk Assessment: Do you want to hurt yourself or someone else? Patient reports no desire to harm self or others. Onset of symptoms was June 27, 2025 at 08:00. 18:38 Method Of Arrival: Ambulatory az1 18:38 Acuity: ROD 3 me1 Historical: - Allergies: 18:39 No Known Allergies; me1 - Home Meds: 18:39 None [Active]; me1 - PMHx: 18:39 None; me1 - PSHx: 18:39 head injury; me1 - Immunization history:: Adult Immunizations up to date. - Infectious Disease History:: Denies. - Social history:: Smoking status: Patient denies any tobacco usage or history of. Screenin:34 [facility] ED Fall Risk Assessment (Adult) History of falling in the last 3 months, af3 including since admission No falls in past 3 months (0 pts) Confusion or Disorientation No (0 pts) Intoxicated or Sedated No (0 pts) Impaired Gait No (0 pts) Mobility Assist Device Used No (0 pt) Altered Elimination No (0 pt) Score/Fall Risk Level 0 - 2 = Low Risk Oriented to surroundings, Maintained a safe environment, Educated pt \T\ family on fall prevention, incl call for assistance when getting out of bed. Abuse screen: Denies threats or abuse. Denies injuries from another. Nutritional screening: No deficits noted. Tuberculosis screening: No symptoms or risk factors identified. Assessment: 19:34 General: Appears in no apparent distress. comfortable, well groomed, well developed, af3 Behavior is calm, cooperative, appropriate for age. Pain: Denies pain. Neuro: Level of Consciousness is awake, alert, obeys commands. Cardiovascular: Patient's skin is warm and dry. Respiratory: Airway is patent Respiratory effort is even, unlabored, Respiratory pattern is regular, symmetrical. GI: Reports nausea, vomiting. Vital Signs: 18:38 BP 114 / 79; Pulse 112; Resp 17; Temp 98.3; Pulse Ox 99% ; Weight 113.4 kg; Height 5 me1 ft. 6 in. ; Pain 0/10; 19:36 BP 156 / 57; Pulse 62; Resp 18; Pulse Ox 96% on R/A; af3 20:32 BP 122 / 74; Pulse 67; Resp 18; Pulse Ox 97% ; cp4 18:38 Body Mass Index 40.35 (113.40 kg, 167.64 cm) me1 18:38 Pain Scale: Adult [facility] ED Course: 18:24 Patient arrived in ED. im 18:26 Rena Banda PA-C is PHCP. sb4 18:26 Sigifredo Ward MD is Attending Physician. sb4 18:38 Arm band placed on Patient placed in waiting room. me1 18:39 Triage completed. me1 19:31 Eleonora Marquez, HA is Primary Nurse. af3 19:32 No provider procedures requiring assistance completed. Initial lab(s) drawn, by ED af3 staff, sent to lab. Inserted saline lock: 20 gauge in right antecubital area, using aseptic technique. Blood collected. Flushed with 10 mL NS. 19:34 Patient has correct armband on for positive identification. Provided Education on: call af3 light use . 20:36 intact, bleeding controlled, No redness/swelling at site. Pressure dressing applied. cp4 Administered Medications: 19:31 Drug: Famotidine IVP 20 mg IVP once; dilute with 10 mL 0.9% NaCl; give over 2 minutes af3 Route: IVP; Site: right antecubital; 20:07 Follow up: Response: No adverse reaction af3 19:31 Drug: Ondansetron IVP 4 mg IVP once; over 2 minutes Route: IVP; Site: right antecubital;af3 20:07 Follow up: Response: No adverse reaction af3 19:31 Drug: NS 0.9% IV 1000 ml IV at 1 bolus Per protocol; to be given as a bolus over 60 af3 minutes Route: IV; Rate: 1 bolus; Site: right antecubital; 20:38 Follow up: IV Status: Completed infusion cp4 Medication: 19:34 VIS not applicable for this client. af3 Outcome: 20:06 Discharge ordered by . sb4 20:36 Discharged to home ambulatory, cp4 20:36 Condition: stable 20:36 Discharge instructions given to patient, Instructed on discharge instructions, follow up and referral plans. medication usage, Demonstrated understanding of instructions, follow-up care, medications, Prescriptions given X 1, 20:37 Patient left the ED. cp4 Signatures: Rena Banda, LALA PADinorah sb4 Bernarda Childress Michelle, RN RN me1 Lizabeth Mendez cp4 Eleonora Marquez RN RN af3 Corrections: (The following items were deleted from the chart) 18:40 18:38 Pulse 112bpm; Resp 17bpm; Pulse Ox 99%; Temp 98.3F; 113.4 kg; Height 5 ft. 6 in.; me1 BMI: 40.3; Pain 0/10, Adult; me1
--- NOTE | 2025-06-27 20:07 | EDPHYS ---
Physician Documentation [facility] Name: Israel Mathias Jr Age: 30 yrs Sex: Male : 1995 Arrival Date: 06/27/2025 Time: 18:21 Bed 7 Private MD: ED Physician Sigifredo Ward HPI: 06/27 19:08 This 30 yrs old Male presents to ER via Ambulatory with complaints of sb4 Nausea/Vomiting/Diarrhea. 19:08 Patient reports nausea, vomiting, diarrhea that began today. States that his made sb4 facility last night and he thinks that he may have food poisoning from it. States he has family members who have been sick with similar symptoms. Denies any abdominal pain. States he is unable to hold anything down. No other complaints at this time, no fever or chills. Historical: - Allergies: 18:39 No Known Allergies; me1 - Home Meds: 18:39 None [Active]; me1 - PMHx: 18:39 None; me1 - PSHx: 18:39 head injury; me1 - Immunization history:: Adult Immunizations up to date. - Infectious Disease History:: Denies. - Social history:: Smoking status: Patient denies any tobacco usage or history of. ROS: 19:08 Constitutional: Negative for fever, chills, and weight loss, sb4 19:08 Abdomen/GI: Positive for nausea, vomiting, and diarrhea, 19:08 All other systems are negative, Exam: 19:08 Constitutional: This is a well developed, well nourished patient who is awake, alert, sb4 and in no acute distress. Head/Face: Normocephalic, atraumatic. Eyes: Extra-ocular motions intact. Periorbital areas with no swelling, redness, or edema. ENT: Mucous membranes moist. Respiratory: No increased work of breathing, no retractions or nasal flaring. Abdomen/GI: Soft, non-tender, no distension. Skin: Warm, dry with normal turgor. Normal color with no rashes, no lesions, and no evidence of cellulitis. 19:08 Cardiovascular: Rate: tachycardic, Rhythm: regular, Vital Signs: 18:38 BP 114 / 79; Pulse 112; Resp 17; Temp 98.3; Pulse Ox 99% ; Weight 113.4 kg; Height 5 me1 ft. 6 in. ; Pain 0/10; 19:36 BP 156 / 57; Pulse 62; Resp 18; Pulse Ox 96% on R/A; af3 20:32 BP 122 / 74; Pulse 67; Resp 18; Pulse Ox 97% ; cp4 18:38 Body Mass Index 40.35 (113.40 kg, 167.64 cm) me1 18:38 Pain Scale: Adult me1 MDM: 18:26 Medical Screening Exam initiated sb4 20:07 Differential diagnosis: viral gastroenteritis, gastroenteritis, gastritis. Data sb4 reviewed: vital signs, nurses notes, lab test result(s), and as a result, I will discharge patient. Test considered but Not performed: CT: CT abdomen pelvis not indicated, no abd pain or tenderness. Counseling: I had a detailed discussion with the patient and/or guardian regarding the historical points, exam findings, and any diagnostic results supporting the discharge/admit diagnosis, the presence of at least one elevated blood pressure reading (>120/80) during this emergency department visit, lab results, the need for outpatient follow up, for definitive care, to return to the emergency department if symptoms worsen or persist or if there are any questions or concerns that arise at home. 06/27 18:39 Order name: CBC with Diff sb4 06/27 18:39 Order name: CMP; Complete Time: 19:51 sb4 06/27 18:39 Order name: Lipase; Complete Time: 19:51 sb4 06/27 18:39 Order name: COVID-19 Ag + Flu A+B Ag; Complete Time: 19:51 sb4 06/27 19:53 Order name: Manual Differential EDMS 06/27 18:39 Order name: IV Saline Lock; Complete Time: 19:31 sb4 06/27 18:39 Order name: Labs collected and sent; Complete Time: 19:31 sb4 06/27 19:52 Order name: PO challenge; Complete Time: 19:56 sb4 Administered Medications: 19:31 Drug: Famotidine IVP 20 mg IVP once; dilute with 10 mL 0.9% NaCl; give over 2 minutes af3 Route: IVP; Site: right antecubital; 20:07 Follow up: Response: No adverse reaction af3 19:31 Drug: Ondansetron IVP 4 mg IVP once; over 2 minutes Route: IVP; Site: right antecubital;af3 20:07 Follow up: Response: No adverse reaction af3 19:31 Drug: NS 0.9% IV 1000 ml IV at 1 bolus Per protocol; to be given as a bolus over 60 af3 minutes Route: IV; Rate: 1 bolus; Site: right antecubital; 20:38 Follow up: IV Status: Completed infusion cp4 Disposition Summary: 06/27/25 20:06 Discharge Ordered Notes: Location: Home sb4 Problem: new sb4 Symptoms: have improved sb4 Condition: Stable sb4 Diagnosis - Viral gastroenteritis sb4 Followup: sb4 - With: Emergency Department - When: As needed - Reason: Trouble breathing, Worsening of condition Discharge Instructions: - Discharge Summary Sheet sb4 - Viral Gastroenteritis, Adult, [id number]-[id number] sb4 Forms: - Patient Portal Instructions sb4 - Leadership Thank You Letter sb4 - Work release form ss12 Prescriptions: - ondansetron 4 mg Oral Tablet,disintegrating - take 1 tablet ORAL route every 6 hours as needed for nausea and vomiting; 10 sb4 tablet; Refills: 0, Product Selection Permitted Signatures: Dispatcher [employer] EDMS Rena Banda PATavaresC PATavaresC sb4 Radha Schaeffer, RN RN me1 Eleonora Marquez, RN RN af3 Lizabeth Mendez cp4 Corrections: (The following items were deleted from the chart) 18:39 18:39 CBC+H.LAB.BRZ ordered. EDMS EDMS 18:39 18:39 COMPREHENSIVE METABOLIC PANEL+C.LAB.BRZ ordered. EDMS EDMS 18:39 18:39 LIPASE+C.LAB.BRZ ordered. EDMS EDMS 18:39 18:39 COVID-19 Ag + Flu A+B Ag+I.LAB.BRZ ordered. EDMS EDMS
[2025-06-27 20:53] LABS: Blood Morphology Comment NOT SEEN (NOT SEEN); Differential Total Cells Count 100; Segmented Neutrophils 80 % (40-80)
[2025-06-28 01:59] VITALS: TEMP 98.3
[2025-06-28 02:13] VITALS: BP 122/74; O2SAT 97
== END 2025-06-27 20:37 | disposition home or self-care (01) ==
LOC: ER 18:21
DX: A08.4 Viral intestinal infection, unspecified (principal); Z11.52 Encounter for screening for COVID-19
CPT/HCPCS: 96361; 85025; 36415; 83690; 80053; 96375; 96374; 99284; 87428; J2405; J7030